=== PATIENT | male | born 1930 | race Caucasian/White ===

== ENCOUNTER 2018-09-22 23:11 | Inpatient (IN) | payer OTHER ==
[~2018-09-22] VITALS: Ht 172.7 cm; Wt 78.0 kg
[2018-09-23] MEDS ORDERED: SODIUM CHLORIDE FLUSH 10ML SYR IVF ONE
[2018-09-23] MEDS ORDERED: SODIUM CHLORIDE 0.9% 1,000ML IVBOLUS ONE
--- NOTE | 2018-09-23 00:05 | NUR ---
PT HERE FOR RUQ PAIN THAT STARTED THIS EVENING. PT HAS ILIOSTOMY. VSS. BP IS ELEVATED. [facility] LAB DRAW[facility] BLOOD. CALL LIGHT IN REACH
[2018-09-23 00:13] LABS: BASOPHILS # (AUTO) 0.02 x10^3/uL (0-0.1); BASOPHILS % (AUTO) 0 % (0-1); EOSINOPHILS # (AUTO) 0.21 x10^3/uL (0-0.4); EOSINOPHILS % (AUTO) 3 % (1-7); LYMPHOCYTES # (AUTO) 0.66 x10^3/uL (1-3.4); LYMPHOCYTES % (AUTO) 11 % (22-44); MD NO; MEAN CORPUSCULAR HEMOGLOBIN 32.3 pg (27.5-34.5); MEAN CORPUSCULAR HGB CONC 32.2 g/dL (33.2-36.2); MEAN CORPUSCULAR VOLUME 100.5 fL (81-97); MEAN PLATELET VOLUME 9.4 fL (7.4-10.4); MONOCYTES # (AUTO) 0.48 x10^3/uL (0.2-0.8); MONOCYTES % (AUTO) 8 % (2-9); NEUTROPHILS % (AUTO) 77 % (42-75); PLATELET COUNT 129 x10^3/uL (130-400); RED BLOOD COUNT 3.26 x10^6/uL (4.38-5.82)
[2018-09-23 00:14] LABS: ALANINE AMINOTRANSFERASE 27 U/L (12-78); ALBUMIN 3.8 g/dL (3.4-5.0); ANION GAP 8 mmol/L (5-15); CALCIUM 9.2 mg/dL (8.5-10.1); CHLORIDE 113 mmol/L (98-107); CREATININE 2.74 mg/dL (0.7-1.3)
[2018-09-23 00:17] LABS: ALKALINE PHOSPHATASE 76 U/L (45-117); BILIRUBIN,TOTAL 0.2 mg/dL (0.2-1.0); TOTAL PROTEIN 6.7 g/dL (6.4-8.2)
[2018-09-23 01:00] LABS: MICROSCOPIC NOT IND
[2018-09-23 01:02] LABS: CULTURE INDICATED? NO
[2018-09-23] MEDS ORDERED: CHOL2000 PO (01:32)
[2018-09-23] MEDS ORDERED: LEVO100T PO (01:32)
[2018-09-23] MEDS ORDERED: ALLO100T64 PO (01:32)
[2018-09-23] MEDS ORDERED: WARF3TAB52 PO (01:32)
[2018-09-23] MEDS ORDERED: DILT300C45 PO (01:32)
[2018-09-23] MEDS ORDERED: RAMI2.5C28 PO (01:32)
[2018-09-23] MEDS ORDERED: ROSU20TA2 PO (01:32)
[2018-09-23] MEDS ORDERED: UBID100C24 PO (01:32)
[2018-09-23] MEDS ORDERED: CEFI400C PO (01:32)
[2018-09-23] MEDS ORDERED: ASPI-496 PO (01:32)
[2018-09-23] MEDS ORDERED: FE F1CAP8 PO (01:32)
[2018-09-23] MEDS ORDERED: GLICLAZIDE PO (01:32)
[2018-09-23 01:41] LABS: INTERNATIONAL NORMALIZED RATIO 3.76 (0.93-1.1)
--- NOTE | 2018-09-23 01:42 | NUR ---
ADMITTING MD AT BEDSIDE
[2018-09-23 01:45] LABS: PROTHROMBIN TIME 37.5 Seconds (9.6-11.5)
--- NOTE | 2018-09-23 01:53 | NUR ---
SURGEON AT BEDSIDE.
[2018-09-23] MEDS ORDERED: ACETAMINOPHEN 325 MG TABLET PO PRN (02:00)
[2018-09-23] MEDS ORDERED: ONDANSETRON 2MG/ML, 2ML IVPush PRN (02:00)
[2018-09-23] MEDS ORDERED: morphine SULFATE 10 MG/ML, 1ML IVPush PRN (02:00)
[2018-09-23] MEDS ORDERED: PROMETHAZINE 25 MG/ML, 1ML IM PRN (02:00)
[2018-09-23] MEDS ORDERED: ONDANSETRON ODT 4 MG PO PRN (02:00)
[2018-09-23] MEDS ORDERED: hydrALAzine 20 MG/ML, 1ML IVPush PRN (02:00)
[2018-09-23] MEDS ORDERED: HYDROcodone/APAP 5/325 TABLET PO PRN (02:00)
[2018-09-23 02:23] LABS: HEMOGLOBIN A1C 5.6 % (4.2-6.3)
[2018-09-23 02:25] LABS: FREE T4 (FREE THYROXINE) 0.9 ng/dL (0.76-1.46); THYROID STIMULATING HORMONE 1.32 mIU/L (0.358-3.740)
--- NOTE | 2018-09-23 02:40 | NUR ---
PT PLACED ON 2 L NC FOR O2 SATS. PT USUALLY WEARS CPAP AT NIGHT. O2 SATS IMPROVED FROM 89% TO 97%. PT HAS NO OTHER NEEDS AT THIS TIME. CALL LIGHT IN REACH
--- NOTE | 2018-09-23 03:48 | NUR ---
PT SLEEPING. EVEN RISE AND FALL OF CHEST OBSERVED. PT IN NAD. CALL LIGHT IN REACH
[2018-09-23] MEDS: SODIUM CHLORIDE 0.9% 1,000 ML IV SCH ×2 (04:42→16:30)
--- NOTE | 2018-09-23 04:42 | NUR ---
PT AMBULATED TO BATHROOM WITH A STEADY GAIT. PT ASSITED BACK TO BED. FLUIDS RUNNING. VSS. CALL LIGHT IN REACH
--- NOTE | 2018-09-23 05:14 | NUR ---
PT MOVED TO HOSPITAL BED. PT HAS NO NEEDS AT THIS TIME. CALL LIGHT IN REACH
--- NOTE | 2018-09-23 06:26 | NUR ---
PT SLEEPING. EVEN RISE AND FALL OF CHEST OBSERVED. PT IN NAD. CALL LIGHT IN REACH
[2018-09-23] MEDS: INSULIN LISPRO 100 UNITS/ML, PEN SQ-INSULIN SCH ×4 (07:00→21:00)
--- NOTE | 2018-09-23 07:33 | NUR ---
task rn: pt resting in room. no needs expressed. vss. report given. awaiting transport.
[2018-09-23 08:01] VITALS: BP 156/79
[2018-09-23] MEDS: CHOLECALCIFEROL 1,000 UNIT TABLET PO SCH (08:22)
[2018-09-23] MEDS: LEVOTHYROXINE 100 MCG TABLET PO SCH (08:22)
[2018-09-23] MEDS: RAMIPRIL 2.5 MG CAPSULE PO SCH (08:22)
[2018-09-23] MEDS: ALLOPURINOL 100 MG TABLET PO SCH (08:22)
[2018-09-23] MEDS ORDERED: MULTIVITAMIN INTRINS/IRON CAPSULE PO SCH (09:00)
[2018-09-23] MEDS ORDERED: ASPIRIN 81 MG TABLET EC PO SCH (09:00)
[2018-09-23] MEDS: CEFIXIME 400 MG PO SCH (09:00)
[2018-09-23] MEDS ORDERED: TEMPLATE NON-FORMULARY MED. (Ubidecarenone (Coq-10) 200 MG) PO SCH (09:00)
[2018-09-23] MEDS: DILTIAZEM 300 MG CAP.ER.24H PO SCH (10:14)
[2018-09-23] MEDS ORDERED: FUROSEMIDE 20 MG/2 ML IV ONE (10:30)
[2018-09-23 13:06] VITALS: BP 136/64
[2018-09-23 13:26] VITALS: BP 134/57
[2018-09-23 13:27] VITALS: BP 134/57
[2018-09-23 16:08] VITALS: BP 118/55
[2018-09-23 19:11] VITALS: BP 128/57
[2018-09-23] MEDS ORDERED: ATORVASTATIN 80 MG TABLET PO SCH (21:00)
[2018-09-24 01:27] VITALS: BP 120/57
[2018-09-24] MEDS: SODIUM CHLORIDE 0.9% 1,000 ML IV SCH (01:41)
[2018-09-24 05:12] LABS: BASOPHILS # (AUTO) 0.03 x10^3/uL (0-0.1); BASOPHILS % (AUTO) 1 % (0-1); EOSINOPHILS # (AUTO) 0.17 x10^3/uL (0-0.4); EOSINOPHILS % (AUTO) 5 % (1-7); LYMPHOCYTES # (AUTO) 0.84 x10^3/uL (1-3.4); LYMPHOCYTES % (AUTO) 24 % (22-44); MD NO; MEAN CORPUSCULAR HEMOGLOBIN 32.2 pg (27.5-34.5); MEAN CORPUSCULAR VOLUME 100.9 fL (81-97); MEAN PLATELET VOLUME 9.2 fL (7.4-10.4); MONOCYTES # (AUTO) 0.33 x10^3/uL (0.2-0.8); MONOCYTES % (AUTO) 9 % (2-9); NEUTROPHILS # (AUTO) 2.16 x10^3/uL (1.8-6.8); NEUTROPHILS % (AUTO) 61 % (42-75); PLATELET COUNT 119 x10^3/uL (130-400); RED BLOOD COUNT 2.97 x10^6/uL (4.38-5.82); RED CELL DISTRIBUTION WIDTH 14.3 % (9.4-14.8)
[2018-09-24 05:19] LABS: INTERNATIONAL NORMALIZED RATIO 3.05 (0.93-1.1); PROTHROMBIN TIME 30.7 Seconds (9.6-11.5)
[2018-09-24 05:24] LABS: CHLORIDE 118 mmol/L (98-107)
[2018-09-24 05:40] LABS: ALANINE AMINOTRANSFERASE 24 U/L (12-78); ALBUMIN 3.1 g/dL (3.4-5.0); ALKALINE PHOSPHATASE 76 U/L (45-117); ANION GAP 7 mmol/L (5-15); BILIRUBIN,TOTAL 0.5 mg/dL (0.2-1.0); CALCIUM 8.6 mg/dL (8.5-10.1); CHOL/HDL RATIO 2.1; CHOLESTEROL, TOTAL 148 mg/dL (140-239); HDL CHOL % 47 % (26-37); HDL CHOLESTEROL (DIRECT) 69 mg/dL (40-60); LDL CHOLESTEROL,CALCULATED 37 mg/dL (54-169); LDL/HDL RATIO 0.5 (0.5-3.0); TOTAL PROTEIN 5.8 g/dL (6.4-8.2); TRIGLYCERIDES 211 mg/dL (50-200); VLDL CHOLESTEROL 42 mg/dL (0-25)
[2018-09-24] MEDS: LEVOTHYROXINE 100 MCG TABLET PO SCH (06:23)
[2018-09-24] MEDS: INSULIN LISPRO 100 UNITS/ML, PEN SQ-INSULIN SCH ×2 (07:00→11:00)
[2018-09-24 07:30] VITALS: BP 136/69
[2018-09-24] MEDS: CEFIXIME 400 MG PO SCH (09:00)
[2018-09-24] MEDS: CHOLECALCIFEROL 1,000 UNIT TABLET PO SCH (09:15)
[2018-09-24] MEDS: ALLOPURINOL 100 MG TABLET PO SCH (09:15)
[2018-09-24] MEDS: RAMIPRIL 2.5 MG CAPSULE PO SCH (09:15)
[2018-09-24] MEDS: DILTIAZEM 300 MG CAP.ER.24H PO SCH (09:15)
== END 2018-09-24 13:15 | disposition home or self-care (01) | DRG 394 ==
LOC: ED 09-23 00:56 → EDIP 09-23 01:38 → 4NOR 09-23 07:56 → DCLOUNGE 09-24 12:58
PROVIDERS: ADMIT Internal Medicine; ATTEND Internal Medicine
PROC: 30233K1 Transfusion of Nonautologous Frozen Plasma into Peripheral Vein, Percutaneous Approach (ICD-10-PCS; principal; 2018-09-23)
PROC: 5A09357 Assistance with Respiratory Ventilation, Less than 24 Consecutive Hours, Continuous Positive Airway Pressure (ICD-10-PCS; 2018-09-24)
DX: K43.6 Other and unspecified ventral hernia with obstruction, without gangrene (principal); N18.4 Chronic kidney disease, stage 4 (severe); I31.3 Pericardial effusion (noninflammatory); D68.59 Other primary thrombophilia; I72.3 Aneurysm of iliac artery; I71.2 Thoracic aortic aneurysm, without rupture; K43.3 Parastomal hernia with obstruction, without gangrene; N28.1 Cyst of kidney, acquired; E11.22 Type 2 diabetes mellitus with diabetic chronic kidney disease; W18.39XA Other fall on same level, initial encounter; E78.5 Hyperlipidemia, unspecified; D69.6 Thrombocytopenia, unspecified; D53.9 Nutritional anemia, unspecified; I25.10 Atherosclerotic heart disease of native coronary artery without angina pectoris; M10.9 Gout, unspecified; I12.9 Hypertensive chronic kidney disease with stage 1 through stage 4 chronic kidney disease, or unspecified chronic kidney disease; G47.33 Obstructive sleep apnea (adult) (pediatric); Z95.5 Presence of coronary angioplasty implant and graft; Z90.5 Acquired absence of kidney; Z82.49 Family history of ischemic heart disease and other diseases of the circulatory system; Y93.89 Activity, other specified; Y92.89 Other specified places as the place of occurrence of the external cause; Y99.8 Other external cause status; Z85.038 Personal history of other malignant neoplasm of large intestine; Z83.3 Family history of diabetes mellitus; Z90.49 Acquired absence of other specified parts of digestive tract; Z86.718 Personal history of other venous thrombosis and embolism; Z87.440 Personal history of urinary (tract) infections; Z85.528 Personal history of other malignant neoplasm of kidney; Z86.19 Personal history of other infectious and parasitic diseases; Z93.2 Ileostomy status
CPT/HCPCS: 36415; 74176; 80053; 80061; 81003; 82962; 83036; 83690; 83735; 84100; 84439; 84443; 85025; 85610; 85730; 86850; 86900; 93005; G0378; J7030; P9017